=== PATIENT | female | born 1965 | race Caucasian/White ===

== ENCOUNTER 2022-06-03 13:58 | Emergency (ER) | payer BC ==
[~2022-06-03] VITALS: Ht 175.3 cm; Wt 68.9 kg
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
[2022-06-03] MEDS ORDERED: HYDR-3972 PO (15:53)
[2022-06-03] MEDS ORDERED: IBUP-1955 PO (15:53)
[2022-06-03] MEDS ORDERED: HYDROCODONE/APAP 5/325MG TABLET PO ONE (16:00)
[2022-06-03] MEDS ORDERED: HYDROCODONE/APAP 5/325MG TABLET ONE (16:45)
--- NOTE | 2022-06-03 19:40 | NUR ---
Patient discharged to home in stable condition. Written and verbal after care instructions given. Patient verbalizes understanding of instruction.
[2022-06-03 23:04] VITALS: BP 121/77
== END 2022-06-03 19:40 | disposition home or self-care (01) ==
LOC: ER 14:04
DX: S63.502A Unspecified sprain of left wrist, initial encounter (principal); S79.912A Unspecified injury of left hip, initial encounter; M25.561 Pain in right knee; M25.562 Pain in left knee; V49.49XA Driver injured in collision with other motor vehicles in traffic accident, initial encounter; Y93.89 Activity, other specified; Y92.413 State road as the place of occurrence of the external cause; Y99.8 Other external cause status
CPT/HCPCS: 72170-TC; 73090-TC; 73110; 73502; 73564-TC